=== PATIENT | male | born 1980 | race Two or more races ===

== ENCOUNTER 2018-06-30 10:11 | Emergency (ER) | payer MEDICAID ==
[~2018-06-30] VITALS: Ht 170.2 cm; Wt 61.2 kg
[2018-06-30 10:59] VITALS: BP 170/74
== END 2018-06-30 13:02 | disposition home or self-care (01) ==
LOC: ER 10:19
DX: F41.9 Anxiety disorder, unspecified (principal); I10 Essential (primary) hypertension; Z76.0 Encounter for issue of repeat prescription